=== PATIENT | female | born 1970 | race Caucasian/White ===

== ENCOUNTER 2016-09-27 17:30 | Emergency (ER) | payer OTHER ==
[~2016-09-27] VITALS: Ht 157.5 cm; Wt 56.7 kg
[2016-09-27] MEDS ORDERED: HYDROCODONE-AP1 EAC6 PO (18:26)
[2016-09-27] MEDS ORDERED: NEURONTIN 300300 M1 PO (18:26)
[2016-09-27 19:06] VITALS: BP 153/94
[2016-11-14] MEDS ORDERED: FLOVENT HFA 2220 MCG INH (15:20)
[2016-11-14] MEDS ORDERED: ACCUNEB SO1.25 MG/1 INH (15:20)
[2016-11-14] MEDS ORDERED: MOBIC7.5 MG PO (16:17)
== END 2016-09-27 19:10 | disposition home or self-care (01) ==
LOC: ER 17:30
DX: M54.41 Lumbago with sciatica, right side (principal); G89.29 Other chronic pain; F41.9 Anxiety disorder, unspecified